=== PATIENT | female | born 1980 | race Caucasian/White ===

== ENCOUNTER 2021-04-25 11:58 | Emergency (ER) | payer OTHER ==
[~2021-04-25] VITALS: Ht 165.1 cm; Wt 70.9 kg
[2021-04-25 13:28] LABS: BASOPHILS % (AUTO) 0.4 % (0-1); EOSINOPHILS # (AUTO) 0.1 X10'3 (0-0.9); EOSINOPHILS % (AUTO) 0.7 % (0-6); HEMATOCRIT 40.8 % (35.0-45.0); HEMOGLOBIN 13.9 g/dl (12.0-16.0); LYMPHOCYTES # (AUTO) 1.7 X10'3 (1.1-4.8); LYMPHOCYTES % (AUTO) 18.4 % (21-51); MEAN CORPUSCULAR HEMOGLOBIN 31.2 PG (27.0-31.0); MEAN CORPUSCULAR VOLUME 91.7 FL (78-98); MEAN PLATELET VOLUME 8.5 FL (7.4-10.4); MONOCYTES # (AUTO) 0.6 X10'3 (0-0.9); MONOCYTES % (AUTO) 6.9 % (2-12); NEUTROPHILS # (AUTO) 6.8 X10'3 (1.8-7.7); NEUTROPHILS % (AUTO) 73.6 % (42-75); PLATELET COUNT 261 X10'3 (140-440); RED BLOOD COUNT 4.45 X10'6 (4.20-5.60); RED CELL DISTRIBUTION WIDTH 12.8 % (11.5-14.5); WHITE BLOOD COUNT 9.3 X10'3 (4.5-11.0)
[2021-04-25 13:42] LABS: ALANINE AMINOTRANSFERASE 29 U/L (12-78); ALBUMIN 3.7 G/DL (3.4-5.0); ALBUMIN/GLOBULIN RATIO 1.1 (1.1-1.5); ALKALINE PHOSPHATASE 53 IU/L (46-116); ANION GAP 6 (8-16); ASPARTATE AMINO TRANSFERASE 16 U/L (10-37); BILIRUBIN,TOTAL 0.3 MG/DL (0.1-1.0); BLOOD UREA NITROGEN 13 MG/DL (7-18); BUN/CREATININE RATIO 16.9 (6.6-38.0); CALCIUM 8.7 MG/DL (8.5-10.1); CHLORIDE 106 MMOL/L (99-107); CREATININE 0.77 MG/DL (0.40-0.90); GLUCOSE 95 MG/DL (70-104); POTASSIUM 4.1 MMOL/L (3.5-5.1); SODIUM 139 MMOL/L (135-145); TOTAL CARBON DIOXIDE 27.3 MMOL/L (24-32); eGFR 82 ML/MIN
[2021-04-25 13:55] LABS: ETHANOL < 0.010 GM/DL (0.0-0.010)
[2021-04-26 05:05] LABS: URINE HCG NEGATIVE (NEG)
[2021-04-26 05:08] LABS: URINE AMPHETAMINE SCREEN NEGATIVE (Neg); URINE BARBITUATE SCREEN NEGATIVE (Neg); URINE BENZODIAZEPINES SCREEN NEGATIVE (Neg); URINE CANNABINOID SCREEN POSITIVE (Neg); URINE COCAINE SCREEN NEGATIVE (Neg); URINE METHADONE SCREEN NEGATIVE (Neg); URINE OPIATE SCREEN NEGATIVE (Neg); URINE PHENCYCLIDINE SCREEN NEGATIVE (Neg)
[2021-04-26 05:17] LABS: CLARITY,URINE CLOUDY (Clear); COLOR,URINE YELLOW (Yellow); GLUCOSE, URINE NEGATIVE (Neg); KETONES,URINE >=80 mg/dl (Neg); LEUKOCYTE ESTERASE ,URINE SMALL (Neg); NITRITES, URINE NEGATIVE (Neg); OCCULT BLOOD,URINE NEGATIVE (Neg); PROTEIN,URINE NEGATIVE (Neg); UROBILINOGEN,URINE 0.2 E.U/dL (0.2-1.0)
[2021-04-26 05:25] LABS: UA COLLECTION TYPE CLN CATCH MIDSTREAM
[2021-04-26 05:27] LABS: MUCUS STRANDS MANY /LPF (Neg); RBC,URINE NONE SEEN /HPF (0-2); SQUAMOUS EPITHELIAL CELL,UR MANY /LPF (FEW); WBC,URINE 0-4 /HPF (0-4)
[2021-04-26 05:28] LABS: AMORPHOUS PHOSPHATES 2+; BACTERIA,URINE 3+ /HPF (Neg)
--- NOTE | 2021-04-26 09:36 | NUR ---
VICENTA NAJERA : [phone].
--- NOTE | 2021-04-26 11:19 | NUR ---
PACKET FAXED TO [facility]
--- NOTE | 2021-04-26 18:25 | NUR ---
SEROQUEL 25MG TID TOLD TO STOP ALL OTHER MEDS BUT WAS TAKING LEXAPRO 10 MG HYDROXYZINE 25MG
--- NOTE | 2021-04-26 18:28 | NUR ---
REPORT GIVEN TO LISY RUBIN
--- NOTE | 2021-04-27 07:00 | NUR ---
pt sleeping quietly at this time.
--- NOTE | 2021-04-27 13:00 | NUR ---
pt awake calm, sitting up eating lunch. no outburst today.
--- NOTE | 2021-04-27 16:00 | NUR ---
pt verbalizes, I think the seroquel is hurting my baby. pt thinks she is .
[2021-04-27] MEDS ORDERED: acetaminophen 325mg tablet PO ONE (23:15)
[2021-04-27] MEDS: Melatonin 3mg tablet PO SCH (23:19)
[2021-04-28] MEDS ORDERED: ESCI-8 PO (05:15)
[2021-04-28] MEDS ORDERED: QUET25TA PO (05:15)
--- NOTE | 2021-04-28 06:30 | NUR ---
Report received from LISY Reyes.
[2021-04-28] MEDS: ESCITALOPRAM OXALATE 5 MG TABLET PO SCH (07:53)
[2021-04-28] MEDS: QUEtiapine 25mg tablet PO SCH (07:54)
--- NOTE | 2021-04-28 07:59 | NUR ---
Patient states she would like to see her cousin today; explained to patient no visitor policy when COVID positive. Patient tearful and states she misses her and believes the man at her home was an imposter and not her . Patient states she is fearful for her child's safety if the man at her home was an imposter. Patient given tissue and verbally reassured.
--- NOTE | 2021-04-28 20:12 | NUR ---
Patient denies currently experiencing any thoughts of self-harm or harm towards others. Patient comfortable. Patient needs provided for and provided with water.
[2021-04-28] MEDS: Melatonin 3mg tablet PO SCH (20:57)
--- NOTE | 2021-04-29 01:59 | NUR ---
PT RESTING QUIETLY IN HER BED. PT REPORTED THAT SHE DID NOT NEED ANYTHING AT THIS TIME.
--- NOTE | 2021-04-29 06:30 | NUR ---
first contact with pt. found sitting in bed, requesting breakfast and seroquel. no distress at this time.
[2021-04-29] MEDS: QUEtiapine 25mg tablet PO SCH (08:00)
[2021-04-29] MEDS: ESCITALOPRAM OXALATE 5 MG TABLET PO SCH (08:00)
--- NOTE | 2021-04-29 08:30 | NUR ---
mental health nurse at bedside speaking with pt.
--- NOTE | 2021-04-29 08:50 | NUR ---
breakfast tray provided. pt tearful, stating she think she has depression or menopause. no distress.
--- NOTE | 2021-04-29 17:19 | NUR ---
updated on pt status and poc, pt requesting to speak with . pt is delusional, requesting restraining orders on her parents. re-oriented to hospital environment. sitter within line of sight.
[2021-04-29] MEDS: Melatonin 3mg tablet PO SCH (20:40)
--- NOTE | 2021-04-29 21:25 | NUR ---
Patient assessed this evening and found to be guarded and minimal in engagement. Patient presented as depressed and uninterested in communication. Unable to complete full MSE due to patient guardedness and minimal engagement. Patient comfortable and no needs expressed at this time.
--- NOTE | 2021-04-30 01:12 | NUR ---
Patient resting comfortably in room
[2021-04-30 07:47] VITALS: BP 119/89
--- NOTE | 2021-04-30 09:58 | NUR ---
CALLING [facility] FOR PT LEXAPRO .ITS NOT SHOWING UP IN [facility] /[facility] IS HELPING.
[2021-04-30] MEDS: ESCITALOPRAM OXALATE 5 MG TABLET PO SCH (10:18)
[2021-04-30] MEDS: QUEtiapine 25mg tablet PO SCH (10:18)
--- NOTE | 2021-04-30 13:49 | NUR ---
Pt engaging in conversation. stated she thinks her medications are causing her hormones to be imbalanced. Pt stated her MD is in [place] and she doesn't have a pcp here. also talked about wanting to be and having another baby but understands now that she is not .
--- NOTE | 2021-04-30 18:12 | NUR ---
Pt laying on right side with eyes closed. breathing even and non-labored.
[2021-04-30] MEDS: Melatonin 3mg tablet PO SCH (21:00)
--- NOTE | 2021-05-01 08:30 | NUR ---
Patient laying down, states she was able to get some sleep last night, and ate some of her breakfast. Denies SI/HI at this time, pat in line of sight at all times of staff.
[2021-05-01] MEDS: QUEtiapine 25mg tablet PO SCH (08:32)
[2021-05-01] MEDS: ESCITALOPRAM OXALATE 5 MG TABLET PO SCH (08:32)
--- NOTE | 2021-05-01 12:53 | NUR ---
CALL FROM [facility] REGARDING PATIENT STATUS. 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
== END 2021-05-01 16:48 | disposition home or self-care (01) ==
LOC: ER 11:59
DX: U07.1 COVID-19 (principal); F31.9 Bipolar disorder, unspecified; F20.9 Schizophrenia, unspecified; Z88.8 Allergy status to other drugs, medicaments and biological substances
CPT/HCPCS: 36415; 80053; 80305; 80320; 81001; 81025; 84443; 85025; 87635; 99285; C9803